=== PATIENT | male | born 1995 | race African-American/Black ===

== ENCOUNTER 2017-01-23 08:45 | Inpatient (IN) | payer SELFPAY ==
[~2017-01-23] VITALS: Ht 162.6 cm; Wt 85.1 kg
[2017-01-23 10:16] LABS: MEAN CORPUSCULAR HEMOGLOBIN 27.8 pg (27.0-33.0); MEAN CORPUSCULAR HGB CONC 32.5 g/dl (32.0-36.5); MEAN CORPUSCULAR VOLUME 85.8 fl (80.0-96.0); RED CELL DISTRIBUTION WIDTH 12.3 % (11.5-14.5); WHITE BLOOD COUNT 6.3 K/mm3 (4.0-10.0)
--- NOTE | 2017-01-23 10:23 | REP ---
CT Head without contrast HISTORY: Altered mental status COMPARISON: None There is no intraparenchymal hemorrhage, acute infarct, mass or midline shift. The ventricular system is normal in appearance. There is no extra cerebral collection. There is no fracture. The visualized sinuses are clear. Minimal soft tissue swelling is present over the left frontal bone. IMPRESSION: There is no intracranial lesion. Signed by Rafa Reilly MD 01/23/2017 10:14 A
[2017-01-23 10:30] LABS: METHADONE URINE NEGATIVE (NEGATIVE)
[2017-01-23 10:39] LABS: ALBUMIN 4.6 GM/DL (3.2-5.2); ALBUMIN/GLOBULIN RATIO 1.21 (1.00-1.93); ALKALINE PHOSPHATASE 67 U/L (45-117); ALT/SGPT 20 U/L (12-78); ANION GAP 10 MEQ/L (8-16); AST/SGOT 12 U/L (15-37); BILIRUBIN,DIRECT 0.1 MG/DL (0.0-0.2); BILIRUBIN,TOTAL 0.6 MG/DL (0.2-1.0); BLOOD UREA NITROGEN 10 MG/DL (7-18); CALCIUM LEVEL 9.1 MG/DL (8.5-10.1); CARBON DIOXIDE LEVEL 27 MEQ/L (21-32); CHLORIDE LEVEL 104 MEQ/L (98-107); CREATININE FOR GFR 1.24 MG/DL (0.70-1.30); GLOMERULAR FILTRATION RATE > 60.0 (>60); GLUCOSE, FASTING 107 MG/DL (70-105); POTASSIUM SERUM 3.6 MEQ/L (3.5-5.1); SODIUM LEVEL 141 MEQ/L (136-145); TOTAL PROTEIN 8.4 GM/DL (6.4-8.2)
[2017-01-23] MEDS ORDERED: IBUPOTC PO (14:01)
[2017-01-23 16:27] VITALS: BP 168/95
[2017-01-23] MEDS ORDERED: MOM 30ML SUSPENSION UDC PO PRN (18:45)
[2017-01-23] MEDS ORDERED: ACETAMINOPHEN TAB 650MG DOSE (2X325MG) PO PRN (18:45)
[2017-01-23] MEDS ORDERED: MAALOX 30 ML SUSP *UDC PO PRN (18:45)
[2017-01-23] MEDS ORDERED: OLANZapine ORAL DISINTEGRATING TAB 5MG PO PRN (18:45)
[2017-01-24] MEDS: traZODone 50 MG TAB PO PRN ×2 (01:53→20:32)
--- NOTE | 2017-01-24 05:38 | MHHPE ---
DATE OF ADMISSION: 01/23/2017 HISTORY OF PRESENT ILLNESS: Please refer to psychiatric history and evaluation for further details on this admission. This examination and history is intended for medical issues, which may need treatment, followup or consultation on this 21-year-old male. ALLERGIES: No known drug allergies. PRIMARY CARE PROVIDER: He does not know. SOCIAL HISTORY: He is single. He states he drinks seven drinks a day, it may be beer, it may be liquor or a combination. He smokes one pack of cigarettes per day. Recreational: He smokes marijuana. PAST MEDICAL HISTORY: Negative. PAST SURGICAL HISTORY: Negative. HOME MEDICATIONS: - ibuprofen 200mg by mouth every 6 hours as needed for pain FAMILY HISTORY: Noncontributory. LABORATORY DATA: CBC is normal. Lytes normal. BUN 10, creatinine 1.24. Urine positive for cannibinoids. Head CT was negative. REVIEW OF SYSTEMS: 10 systems review was done and other than the complaint of a dull headache he had no complaints. PHYSICAL EXAMINATION: VITAL SIGNS: 21-year-old cooperative male in no acute distress. Height 64 inches, weight 85.1 kilograms, Body mass index (BMI) 32.2. Blood pressure 150/90, pulse 75, respirations 16, temperature 98.6. GENERAL: The patient is awake, alert and oriented times three. He will start to converse and then seems to stop talking and stare at you. When you ask him a question he will answer and start talking again but seems very vague. He is oriented to person. HEENT: Pupils equal, round, reactive to light. Extraocular muscles intact. Cornea and sclerae clear. Conjunctiva is normal. No facial asymmetry. Pharynx, tongue and gum is pink and moist. Tongue is midline. NECK: Neck is supple without lymphadenopathy. No thyromegaly. No goiter, no bruit. CHEST: Clear to auscultation without wheeze or retraction. HEART: Heart is regular. ABDOMEN: Benign. Bowel sounds positive. Genitourinary ()/Rectal: Not done. Extremities: Equal strength with full range of motion. No clubbing, cyanosis, or edema. Peripheral pulses are equal and palpable bilaterally. SKIN: Warm and dry. IMPRESSION AND PLAN: 1. Psychiatric plan per psychiatry. 2. No acute medical issues.
[2017-01-24 06:54] VITALS: BP 148/98
[2017-01-24] MEDS ORDERED: LORazepam 2 MG TAB PO PRN (08:15)
[2017-01-24] MEDS: FOLIC ACID 1 MG TAB PO SCH (09:00)
[2017-01-24] MEDS: MULTIVITAMINS/MINERALS THERAP 1 TAB PO SCH (09:00)
[2017-01-24] MEDS: THIAMINE 100 MG TAB PO SCH ×2 (09:00→20:32)
[2017-01-24] MEDS: NICOTINE 21MG/24HR 1 EA TRANSDERMAL TD SCH (09:41)
[2017-01-24 11:48] VITALS: BP 146/86
[2017-01-24 12:08] VITALS: BP 150/94
--- NOTE | 2017-01-24 17:55 | MHHPEPDOC ---
[facility] History & Physical History and Physical DATE OF ADMISSION: Jan 23, 2017 at 14:40 LEGAL STATUS AT ADMISSION: 9.39 CHIEF COMPLAINT: I had an episode. HISTORY OF THE PRESENT ILLNESS: Patient is a 21-year-old male, who, single domicile with father, brother, who is 15 years old, working in [employer] earlier for about 2 weeks. History of ADHD and was taking Adderall XR. History of one inpatient psychiatric admission. In middle school and reported that he was diagnosed with schizoaffective disorder, history of being on Geodon and Zoloft. Past medical history of asthma and head injury was brought in by father because patient was acting bizarre. On evaluation, patient reported that he does not know why he is here. Patient is a poor historian and takes a long time to respond to any of the questions. He reported that he was in the house and he was smelling some gas, so he called his father and he brought him here. Patient also reported that he has been feeling confused recently and this gas incidence was just one of them. He also reported that he has been feeling suspicious and paranoid that people are after him and watching him. He refused to talk about auditory or visual hallucinations or symptoms to be internally preoccupied and responding to internal stimuli that hand gestures and at times murmuring to self. Patient has severe thought blocking in the hallway. He approaches people unexpectedly and after teaching closer to them. He just stares at them. No agitation or aggression reported that patient's vitals have been unstable with increase in heart rate as well as to blood pressure. He reported that he has been drinking alcohol almost every day and last use of alcohol was the day of the admission, he reported that when he stopped drinking alcohol. He has some shakes in his hands, but denies any seizures or any other withdrawal symptoms. He also denies ever using any other drugs including marijuana, cocaine or heroine. Patient was found to be sitting in his room on his bed with no lights on and looking down on the floor. He also reported that he has been feeling depressed and sad recently but was not able to explain what is depression for him and started crying. He noted his head as 'no' When asked about suicidal or homicidal ideations. Denies any nightmares, but reported that he has difficulty sleeping recently also reported that he has difficulty eating because of lower appetite. PAST PSYCHIATRIC HISTORY: 1. Previous hospital admission in middle school, but patient is not sure why he was in the hospital. He was able to identify Geodon and Zoloft as previous medications that he has been on, but reports that he has not been on any medications for a long time. ALLERGIES: Please see below. FAMILY PSYCHIATRIC HISTORY: Patient denies. SOCIAL HISTORY: Patient reported he graduated high school in 2014 and has been working in [employer] for about 2 weeks, but otherwise staying to home and staying to himself SUBSTANCE ABUSE HISTORY: Alcohol use daily. PAST MEDICAL/SURGICAL HISTORY: 1., Asthma and head injury. He reported a head injury happened long time ago and he lost consciousness after that head injury. 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 Psychosis, unspecified, rule out major depression with psychosis, rule out bipolar disorder, current episode depression with psychosis. 2.. Alcohol use disorder. 3.. Rule out psychosis secondary to alcohol use. PROBLEM LIST: 1. Psychosis and depression. 2. alcohol use INITIAL TREATMENT PLAN: 1. Patient was admitted on a 9.39 2. Complete history was obtained. 3. With patients permission, family will be contacted and database will be expanded. 4. Patients medication regimen will be reviewed and changed accordingly. 5. Patient will be provided with protected environment. 6. Patient will be treated with individual, group, and milieu therapies. 7. Patient will receive supportive psych-education. 8. Discharge planning will commence immediately. 9. Outpatient follow-up treatment will be strongly recommended. 10. The initial treatment plan will focus initially on: * Depression. Unable to take care of himself and psychosis * Substance abuse. ESTIMATED LENGTH OF STAY:. 7-10 DAYS. TIME SPENT COUNSELING AND COORDINATING INITIAL CARE: 45 minutes. Medications Scheduled PRN Ibuprofen (Ibuprofen) 200 Mg Tab, 200 MG PO for PAIN, (Reported) Allergies Coded Allergies: No Known Allergies (Unverified , 01/23/17) YOVANY GOLD MD Jan 24, 2017 17:55
[2017-01-24] MEDS ORDERED: OLANZapine 5 MG TAB PO SCH (21:00)
[2017-01-25 06:59] VITALS: BP 134/79
[2017-01-25] MEDS: NICOTINE 21MG/24HR 1 EA TRANSDERMAL TD SCH (09:00)
[2017-01-25] MEDS: FOLIC ACID 1 MG TAB PO SCH (09:00)
[2017-01-25] MEDS: MULTIVITAMINS/MINERALS THERAP 1 TAB PO SCH (09:00)
[2017-01-25] MEDS: THIAMINE 100 MG TAB PO SCH ×2 (09:00→21:00)
[2017-01-25] MEDS: LORazepam 1 MG TAB PO SCH ×2 (09:00→16:00)
--- NOTE | 2017-01-25 17:54 | MHIPNPDOC ---
[facility] Progress Note Progress Note DATE OF SERVICE: 01/25/17 HISTORY: Patient is a 21-year-old male, who, single domicile with father, brother, who is 15 years old, working in [employer] earlier for about 2 weeks. History of ADHD and was taking Adderall XR. History of one inpatient psychiatric admission. In middle school and reported that he was diagnosed with schizoaffective disorder, history of being on Geodon and Zoloft. Past medical history of asthma and head injury was brought in by father because patient was acting bizarre. Pt continue to be internally preoccupied but was able to talk better, reported he moved about a month ago to live with father but after coming here he started drinking alcohol & felt paranoid that people were following him, watching him camera around him & also sending some ideas to his mind. Denies any suicidal or homicidal ideations, intent or plan, reported hearing voices mostly feels like own voice, asking him to leave the unit. Denies using other drugs, reported was on meds uptill middle school but became non compliant. Denies visual hallucinations, sleep is affected. VITAL SIGNS: See below. CURRENT MEDICATIONS: See below. MENTAL STATUS EXAMINATION: 21yo male sitting in the chair, looks appropriate for the stated age, poor hygiene and grooming, decreased psychomotor activities, no abnormal movements, superficially cooperative with fair eye contact, speech is very soft, slow in rate, normal rhythm, amount and monotonous, mood is sad', affect flat to constricted and mood congruent, thought process is having derailment, circumstantial, denies suicidal and homicidal ideations, (?) hallucinations, paranoid delusions elicited, aaox3, fair immediate, short term and halfway memory, poor insight, judgement and impulse control DIAGNOSES: 1. Psychosis, unspecified, rule out major depression with psychosis, rule out bipolar disorder, current episode depression with psychosis. 2.. Alcohol use disorder. 3.. Rule out psychosis secondary to alcohol use. ASSESSMENT:pt remains psychotic & internally preoccupied MANAGEMENT PLAN:Titrate Zyprexa, continue encouragement for better hygiene TIME SPENT: minutes. Vital Signs Vital Signs Date Time Temp Pulse Resp B/P (MAP) Pulse Ox O2 Delivery O2 Flow Rate FiO2 01/25/17 06:59 98.9 70 18 134/79 (97) 01/23/17 15:29 96 Room Air Current Medications Current Medications Acetaminophen (Tylenol Tab) 650 mg Q6HP PRN PO HEADACHE or DISCOMFORT; Start at 18:45; Stop 02/22/17 at 18:44 Al Hydrox/Mg Hydrox/Simethicone (Mylanta) 30 ml Q4HP PRN PO HEARTBURN/ INDIGESTION Last administered on 01/24/17 01:53; Start 01/23/17 at 18:45; Stop 02/22/17 at 18:44 Folic Acid (Folic Acid) 1 mg DAILY PO ; Start 01/24/17 at 09:00; Stop 02/23/17 at 08:59 Home Med (Med Rec Complete!) ASDIRECTED XX ; Start 01/23/17 at 14:15; Stop at 14:15; Status DC Lorazepam (Ativan) 1 mg TID PO ; Start 01/25/17 at 09:00; Stop 02/01/17 at 08:59 Lorazepam (Ativan) 2 mg ASDIRECTED PRN PO SEE PROTOCOL; Start 01/24/17 at 08:15 ; Stop 01/25/17 at 09:46; Status DC Magnesium Hydroxide (Milk Of Magnesia) 30 ml DAILYPRN PRN PO CONSTIPATION; Start 01/23/17 at 18:45; Stop 02/22/17 at 18:44 Multivitamins (Theragram-M) 1 tab DAILY PO ; Start 01/24/17 at 09:00; Stop at 08:59 Nicotine (Nicoderm Cq 21mg) 1 patch DAILY TD Last administered on 01/24/17 09: 41; Start 01/24/17 at 09:00; Stop 02/23/17 at 08:59 Olanzapine (ZyPREXA ZYDIS) 5 mg Q4HP PRN PO AGITATION Last administered on 01/24/17 11:16; Start 01/23/17 at 18:45; Stop 02/22/17 at 18:44 Olanzapine (ZyPREXA) 5 mg QHS PO Last administered on 01/24/17 20:31; Start 01/24/17 at 21:00; Stop 01/25/17 at 11:18; Status DC Olanzapine (ZyPREXA) 10 mg QHS PO ; Start 01/25/17 at 21:00; Stop 02/24/17 at 20: 59 Thiamine HCl (Thiamine HCl) 100 mg BID PO Last administered on 01/24/17 20:32; Start 01/24/17 at 09:00; Stop 01/27/17 at 08:59 Trazodone HCl (Desyrel) 50 mg QHSP PRN PO INSOMNIA Last administered on 20:32; Start 01/23/17 at 18:45; Stop 02/22/17 at 18:44 Allergies Coded Allergies: No Known Allergies (Unverified , 01/23/17) YOVANY GOLD MD Jan 25, 2017 17:54
[2017-01-25 18:00] VITALS: BP 122/70
[2017-01-25] MEDS: OLANZapine 10 MG TAB PO SCH (21:00)
[2017-01-25] MEDS ORDERED: HALOPERIDOL 5 MG TAB PO STA (21:04)
[2017-01-25] MEDS ORDERED: LORazepam 2 MG TAB PO STA (21:04)
[2017-01-25] MEDS ORDERED: diphenhydrAMINE 50 MG CAP PO STA (21:04)
[2017-01-25 21:14] VITALS: BP 178/83
[2017-01-25 21:35] VITALS: BP 148/85
[2017-01-25 22:00] VITALS: BP 123/57
[2017-01-26 06:52] VITALS: BP 127/66
[2017-01-26] MEDS: FOLIC ACID 1 MG TAB PO SCH (09:00)
[2017-01-26] MEDS: THIAMINE 100 MG TAB PO SCH ×2 (09:00→19:33)
[2017-01-26] MEDS: NICOTINE 21MG/24HR 1 EA TRANSDERMAL TD SCH (09:00)
[2017-01-26] MEDS: MULTIVITAMINS/MINERALS THERAP 1 TAB PO SCH (09:00)
[2017-01-26] MEDS: LORazepam 1 MG TAB PO SCH ×3 (09:10→19:33)
[2017-01-26 18:20] VITALS: BP 134/79
[2017-01-26] MEDS: OLANZapine 10 MG TAB PO SCH (19:33)
[2017-01-26] MEDS: traZODone 50 MG TAB PO PRN (19:33)
[2017-01-26 20:27] VITALS: BP 134/79
--- NOTE | 2017-01-26 22:08 | IPN ---
DATE: 01/26/2017 SUBJECTIVE: The patient today was sleeping but he aroused easily. He responded with one word responses and was very guarded. I was able to get him to shake his head when I asked him if he was still hearing voices. Basically he acknowledged that. He also indicated that he had slept well, but that was the extent of the information that I could get from him. MENTAL STATUS EXAMINATION: This patient is alert and oriented times three. Eye contact is fair. Psychomotor activity is decreased. He responds with simple one or two-word answers that do appear to be appropriate. There is no formal thought disorder noted. Mood is fine. Affect is flat. He is having continuous auditory hallucinations. He denies being suicidal or homicidal. Concentration is fair. Insight and judgment poor. DIAGNOSES: 1. Unspecified psychotic disorder. 2. Alcohol use disorder. TREATMENT PLAN: At this point, we will further observe and evaluate this patient for ongoing what appear to be psychotic symptoms, and we will continue to titrate his medications also.
[2017-01-27 06:49] VITALS: BP 133/72
[2017-01-27] MEDS: LORazepam 1 MG TAB PO SCH ×3 (08:43→20:57)
[2017-01-27] MEDS: FOLIC ACID 1 MG TAB PO SCH (08:44)
[2017-01-27] MEDS: MULTIVITAMINS/MINERALS THERAP 1 TAB PO SCH (08:44)
[2017-01-27] MEDS: NICOTINE 21MG/24HR 1 EA TRANSDERMAL TD SCH (08:44)
[2017-01-27 14:42] VITALS: BP 138/79
[2017-01-27 18:17] VITALS: BP 138/79
--- NOTE | 2017-01-27 19:22 | IPN ---
DATE: 01/27/2017 SUBJECTIVE: The patient today states, "I am cured." The patient was actually sleeping. I was able to arouse him easily. However, I was not able to get the patient to respond much to any of my questions, and the only thing he did say was, "I am cured." MENTAL STATUS EXAMINATION: He is alert and oriented to person. Eye contact is poor. Psychomotor activity is decreased. I was not able to further evaluate. He did not verbalize any suicidal or homicidal ideations. I suspect that he is still experiencing auditory hallucinations. Insight and judgment poor. Concentration poor. DIAGNOSES: 1.Unspecified psychotic symptoms. 2. Unspecified depressive disorder. 3. Alcohol use disorder. TREATMENT PLAN: At this point, we will continue to monitor the patient for ongoing psychotic symptoms, and we will continue to titrate his medications as indicated.
[2017-01-27] MEDS: OLANZapine 10 MG TAB PO SCH (20:57)
[2017-01-28 06:51] VITALS: BP 145/77
[2017-01-28 07:50] VITALS: BP 145/77
[2017-01-28] MEDS ORDERED: **PENDING PPD ENTRY XX SCH (09:00)
[2017-01-28] MEDS: **PENDING PPD ENTRY XX SCH (09:00)
[2017-01-28] MEDS: NICOTINE 21MG/24HR 1 EA TRANSDERMAL TD SCH (09:00)
[2017-01-28] MEDS: FOLIC ACID 1 MG TAB PO SCH (09:00)
[2017-01-28] MEDS: MULTIVITAMINS/MINERALS THERAP 1 TAB PO SCH (09:00)
[2017-01-28] MEDS: LORazepam 1 MG TAB PO SCH ×2 (09:12→20:58)
[2017-01-28] MEDS ORDERED: TUBERCULIN PPD 5 UNITS/0.1 ML ID ONE (10:30)
[2017-01-28] MEDS: TUBERCULIN PPD 5 UNITS/0.1 ML ID ONE ×2 (12:09→12:22)
[2017-01-28 18:00] VITALS: BP 113/59
--- NOTE | 2017-01-28 18:01 | MHIPNPDOC ---
[facility] Progress Note Progress Note DATE OF SERVICE: 01/28/17 HISTORY: Patient is a 21-year-old male, who, single domicile with father, brother, who is 15 years old, working in [employer] earlier for about 2 weeks. History of ADHD and was taking Adderall XR. History of multiple inpatient psychiatric admissions since middle school and reported that he was diagnosed with schizoaffective disorder, history of being on Geodon and Zoloft. Past medical history of asthma and head injury was brought in by father because patient was acting bizarre. Pt continue to be internally preoccupied but was able to talk better, reported he moved about a month ago to live with father came from [place], [place] where he was living with another family member but after coming here he started drinking alcohol daily and also used marijuana, which made him feel paranoid that people were following him, watching him camera around him & also sending some ideas to his mind. He reports that he has not been feeling that paranoia consistently, but it comes and goes remains in his room most of the time with limited to no interaction with others and at times he was found to be sitting in the dark, mumbling to himself. Over the weekend. His father was visiting him and after the visiting hours. He tried to leave the unit with him even though he knew that he cannot leave with him. Patient has been refusing some of the medications and treatment and when asked about why he reports that he has been 'cured'. He opened up more today and reported that he has been admitted at least 3-4 times since the middle school in most, and reason for admissions was acting out. He continued to report that he has been feeling confused and thinks that his mind is playing tricks on him. His behavior remains bizarre at times, but his hygiene and grooming are improving. Denies any suicidal or homicidal ideations, intent or plan, reported hearing voices mostly feels like own voice, asking him to leave the unit. He reports that he has tried all the drugs in the past, but recently have been using alcohol and marijuana only. Denies visual hallucinations, sleep is affected. VITAL SIGNS: See below. CURRENT MEDICATIONS: See below. 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 Psychosis, unspecified, rule out major depression with psychosis, rule out bipolar disorder, current episode depression with psychosis. 2.. Alcohol use disorder. 3.. Rule out psychosis secondary to alcohol use. ASSESSMENT:pt remains psychotic & internally preoccupied MANAGEMENT PLAN:Titrate Zyprexa. Continue Encouraged patient to participate in the unit activities TIME SPENT: 15 minutes. Vital Signs Vital Signs Date Time Temp Pulse Resp B/P (MAP) Pulse Ox O2 Delivery O2 Flow Rate FiO2 01/28/17 07:50 82 145/77 01/28/17 06:51 97.4 16 Room Air 01/23/17 15:29 96 Current Medications Current Medications Acetaminophen (Tylenol Tab) 650 mg Q6HP PRN PO HEADACHE or DISCOMFORT; Start at 18:45; Stop 02/22/17 at 18:44 Al Hydrox/Mg Hydrox/Simethicone (Mylanta) 30 ml Q4HP PRN PO HEARTBURN/ INDIGESTION Last administered on 01/24/17 01:53; Start 01/23/17 at 18:45; Stop 02/22/17 at 18:44 Diphenhydramine HCl (Benadryl) 50 mg STAT STAT PO Last administered on 21:14; Start 01/25/17 at 21:04; Stop 01/25/17 at 21:08; Status DC Folic Acid (Folic Acid) 1 mg DAILY PO ; Start 01/24/17 at 09:00; Stop 02/23/17 at 08:59 Haloperidol (Haldol) 5 mg STAT STAT PO Last administered on 01/25/17 21:15; Start 01/25/17 at 21:04; Stop 01/25/17 at 21:08; Status DC Home Med (Med Rec Complete!) ASDIRECTED XX ; Start 01/23/17 at 14:15; Stop at 14:15; Status DC Lorazepam (Ativan) 1 mg BID PO ; Start 01/28/17 at 21:00; Stop 02/01/17 at 08:59 Lorazepam (Ativan) 1 mg TID PO Last administered on 01/28/17 09:12; Start 01/25 at 09:00; Stop 01/28/17 at 15:49; Status DC Lorazepam (Ativan) 2 mg ASDIRECTED PRN PO SEE PROTOCOL; Start 01/24/17 at 08:15 ; Stop 01/25/17 at 09:46; Status DC Lorazepam (Ativan) 2 mg STAT STAT PO Last administered on 01/25/17 21:15; Start 01/25/17 at 21:04; Stop 01/25/17 at 21:08; Status DC Magnesium Hydroxide (Milk Of Magnesia) 30 ml DAILYPRN PRN PO CONSTIPATION; Start 01/23/17 at 18:45; Stop 02/22/17 at 18:44 Multivitamins (Theragram-M) 1 tab DAILY PO ; Start 01/24/17 at 09:00; Stop at 08:59 Nicotine (Nicoderm Cq 21mg) 1 patch DAILY TD Last administered on 01/24/17 09: 41; Start 01/24/17 at 09:00; Stop 02/23/17 at 08:59 Non-Formulary Medication ( See Comment Field Below ) SEE COMMENTS SECTION 1T @10 XX ; Start 01/30/17 at 10:00; Stop 01/30/17 at 10:00; Status DC Non-Formulary Medication ( See Comment Field Below ) SEE LABEL COMMENTS DAILY XX ; Start 01/28/17 at 09:00; Stop 01/28/17 at 10:48; Status DC Non-Formulary Medication ( See Comment Field Below ) SEE LABEL COMMENTS DAILY XX ; Start 01/28/17 at 09:00; Stop 02/27/17 at 08:59 Olanzapine (ZyPREXA ZYDIS) 5 mg Q4HP PRN PO AGITATION Last administered on 01/24/17 11:16; Start 01/23/17 at 18:45; Stop 02/22/17 at 18:44 Olanzapine (ZyPREXA) 5 mg QHS PO Last administered on 01/24/17 20:31; Start 01/24/17 at 21:00; Stop 01/25/17 at 11:18; Status DC Olanzapine (ZyPREXA) 10 mg QHS PO Last administered on 01/27/17 20:57; Start 01/25/17 at 21:00; Stop 01/28/17 at 08:26; Status DC Olanzapine (ZyPREXA) 15 mg QHS PO ; Start 01/28/17 at 21:00; Stop 02/27/17 at 20:59 Thiamine HCl (Thiamine HCl) 100 mg BID PO Last administered on 01/26/17 19:33; Start 01/24/17 at 09:00; Stop 01/27/17 at 08:59; Status DC Trazodone HCl (Desyrel) 50 mg QHSP PRN PO INSOMNIA Last administered on 19:33; Start 01/23/17 at 18:45; Stop 02/22/17 at 18:44 Allergies Coded Allergies: No Known Allergies (Unverified , 01/23/17) YOVAYN GOLD MD Jan 28, 2017 18:01
[2017-01-28] MEDS: traZODone 50 MG TAB PO PRN (20:58)
[2017-01-28] MEDS: OLANZapine 5 MG TAB PO SCH (20:58)
[2017-01-28 20:59] VITALS: BP 145/94
[2017-01-29 06:54] VITALS: BP 147/73
[2017-01-29] MEDS: FOLIC ACID 1 MG TAB PO SCH (09:00)
[2017-01-29] MEDS: LORazepam 1 MG TAB PO SCH ×3 (09:00→21:10)
[2017-01-29] MEDS: MULTIVITAMINS/MINERALS THERAP 1 TAB PO SCH (09:00)
[2017-01-29] MEDS: **PENDING PPD ENTRY XX SCH (09:00)
[2017-01-29] MEDS: NICOTINE 21MG/24HR 1 EA TRANSDERMAL TD SCH (09:00)
[2017-01-29] MEDS ORDERED: TUBERCULIN PPD 5 UNITS/0.1 ML ID ONE (11:00)
--- NOTE | 2017-01-29 16:20 | MHIPNPDOC ---
[facility] Progress Note Progress Note DATE OF SERVICE: 01/29/17 HISTORY: Patient is a 21-year-old male, single domicile with father, brother, who is 15 years old, working in [employer] earlier for about 2 weeks. History of ADHD and was taking Adderall XR. History of multiple inpatient psychiatric admissions since middle school and reported that he was diagnosed with schizoaffective disorder, history of being on Geodon and Zoloft. Past medical history of asthma and head injury was brought in by father because patient was acting bizarre. Patient was seen and evaluated. He has been preoccupied with discharge, but at the same time has difficulty in taking care of himself. Even after repeated encouragement, he is refusing to take medications and also refused to take shower, he remains to himself and reports that he went to 1 group and refused to go to any other activities in the unit. Collateral information from the father can be found in discharge planners note who reportedly thinks that patient is at baseline. Patient continues to deny any suicidal or homicidal ideations, also denies any sleep or appetite problems. No agitation or aggressive episode reported. He denies any auditory or visual hallucinations and also denies paranoid ideations. He continued to report that he has been ' cured'. VITAL SIGNS: See below. CURRENT MEDICATIONS: See below. 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 Psychosis, unspecified, rule out major depression with psychosis, rule out bipolar disorder, current episode depression with psychosis. 2.. Alcohol use disorder. 3.. Rule out psychosis secondary to alcohol use. ASSESSMENT:pt remains psychotic & internally preoccupied MANAGEMENT PLAN:Taper Ativan, Continue Encouraged patient to participate in the unit activities TIME SPENT: 15 minutes. Vital Signs Vital Signs Date Time Temp Pulse Resp B/P (MAP) Pulse Ox O2 Delivery O2 Flow Rate FiO2 01/29/17 06:54 97.5 72 18 147/73 (97) Room Air 01/23/17 15:29 96 Current Medications Current Medications Acetaminophen (Tylenol Tab) 650 mg Q6HP PRN PO HEADACHE or DISCOMFORT; Start at 18:45; Stop 02/22/17 at 18:44 Al Hydrox/Mg Hydrox/Simethicone (Mylanta) 30 ml Q4HP PRN PO HEARTBURN/ INDIGESTION Last administered on 01/24/17 01:53; Start 01/23/17 at 18:45; Stop 02/22/17 at 18:44 Diphenhydramine HCl (Benadryl) 50 mg STAT STAT PO Last administered on 21:14; Start 01/25/17 at 21:04; Stop 01/25/17 at 21:08; Status DC Folic Acid (Folic Acid) 1 mg DAILY PO ; Start 01/24/17 at 09:00; Stop 02/23/17 at 08:59 Haloperidol (Haldol) 5 mg STAT STAT PO Last administered on 01/25/17 21:15; Start 01/25/17 at 21:04; Stop 01/25/17 at 21:08; Status DC Home Med (Med Rec Complete!) ASDIRECTED XX ; Start 01/23/17 at 14:15; Stop at 14:15; Status DC Lorazepam (Ativan) 1 mg BID PO Last administered on 01/29/17 14:29; Start 04/05 at 21:00; Stop 02/01/17 at 08:59 Lorazepam (Ativan) 1 mg TID PO Last administered on 01/28/17 09:12; Start 01/25 at 09:00; Stop 01/28/17 at 15:49; Status DC Lorazepam (Ativan) 2 mg ASDIRECTED PRN PO SEE PROTOCOL; Start 01/24/17 at 08:15 ; Stop 01/25/17 at 09:46; Status DC Lorazepam (Ativan) 2 mg STAT STAT PO Last administered on 01/25/17 21:15; Start 01/25/17 at 21:04; Stop 01/25/17 at 21:08; Status DC Magnesium Hydroxide (Milk Of Magnesia) 30 ml DAILYPRN PRN PO CONSTIPATION; Start 01/23/17 at 18:45; Stop 02/22/17 at 18:44 Multivitamins (Theragram-M) 1 tab DAILY PO ; Start 01/24/17 at 09:00; Stop at 08:59 Nicotine (Nicoderm Cq 21mg) 1 patch DAILY TD Last administered on 01/24/17 09: 41; Start 01/24/17 at 09:00; Stop 02/23/17 at 08:59 Non-Formulary Medication ( See Comment Field Below ) SEE COMMENTS SECTION 1T @10 XX ; Start 01/30/17 at 10:00; Stop 01/30/17 at 10:00; Status DC Non-Formulary Medication ( See Comment Field Below ) SEE LABEL COMMENTS DAILY XX ; Start 01/28/17 at 09:00; Stop 01/28/17 at 10:48; Status DC Non-Formulary Medication ( See Comment Field Below ) SEE LABEL COMMENTS DAILY XX ; Start 01/28/17 at 09:00; Stop 01/29/17 at 10:08; Status DC Olanzapine (ZyPREXA ZYDIS) 5 mg Q4HP PRN PO AGITATION Last administered on 01/24/17 11:16; Start 01/23/17 at 18:45; Stop 02/22/17 at 18:44 Olanzapine (ZyPREXA) 5 mg QHS PO Last administered on 01/24/17 20:31; Start 01/24/17 at 21:00; Stop 01/25/17 at 11:18; Status DC Olanzapine (ZyPREXA) 10 mg QHS PO Last administered on 01/27/17 20:57; Start 01/25/17 at 21:00; Stop 01/28/17 at 08:26; Status DC Olanzapine (ZyPREXA) 15 mg QHS PO Last administered on 01/28/17 20:58; Start 01/28/17 at 21:00; Stop 02/27/17 at 20:59 Thiamine HCl (Thiamine HCl) 100 mg BID PO Last administered on 01/26/17 19:33; Start 01/24/17 at 09:00; Stop 01/27/17 at 08:59; Status DC Trazodone HCl (Desyrel) 50 mg QHSP PRN PO INSOMNIA Last administered on t 20:58; Start 01/23/17 at 18:45; Stop 02/22/17 at 18:44 Allergies Coded Allergies: No Known Allergies (Unverified , 01/23/17) YOVANY GOLD MD Jan 29, 2017 16:20
[2017-01-29 18:00] VITALS: BP 136/72
[2017-01-29] MEDS: traZODone 50 MG TAB PO PRN (21:10)
[2017-01-29] MEDS: OLANZapine 5 MG TAB PO SCH (21:10)
[2017-01-30 06:47] VITALS: BP 134/81
[2017-01-30] MEDS: LORazepam 1 MG TAB PO SCH (09:00)
[2017-01-30] MEDS: FOLIC ACID 1 MG TAB PO SCH (09:00)
[2017-01-30] MEDS: NICOTINE 21MG/24HR 1 EA TRANSDERMAL TD SCH (09:00)
[2017-01-30] MEDS: MULTIVITAMINS/MINERALS THERAP 1 TAB PO SCH (09:00)
[2017-01-30] MEDS ORDERED: PPD DOCUMENTATION ENTRY MISC XX SCH (10:00)
[2017-01-30] MEDS ORDERED: PPD DOCUMENTATION ENTRY MISC XX ONE (12:00)
--- NOTE | 2017-01-30 17:26 | MHIPNPDOC ---
[facility] Progress Note Progress Note DATE OF SERVICE: 01/30/17 HISTORY: Patient is a 21-year-old male, single domicile with father, brother, who is 15 years old, working in [employer] earlier for about 2 weeks. History of ADHD and was taking Adderall XR. History of multiple inpatient psychiatric admissions since middle school and reported that he was diagnosed with schizoaffective disorder, history of being on Geodon and Zoloft. Past medical history of asthma and head injury was brought in by father because patient was acting bizarre. Patient was seen and evaluated. He has been preoccupied with discharge, and reports that he has started going to all the groups which are available and also going in milieu treatment of the unit. Patient continues to deny any suicidal or homicidal ideations, also denies any sleep or appetite problems. No agitation or aggressive episode reported. He denies any auditory or visual hallucinations and also denies paranoid ideations. He also reported that when he came in he was having some paranoid ideations that people are following him and watching him and also putting some new ideas to his mind all of that has gone and does not feel that he is paranoid anymore. He also reported that recently he used marijuana, which he bought from some unknown person and is worried about that could be laced with something that he is not aware of. U tox was positive at the time of admission for cannabinoids. but no other substances which were tested. He continued to report that he has been 'cured'. VITAL SIGNS: See below. CURRENT MEDICATIONS: See below. 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 Psychosis, unspecified, rule out major depression with psychosis, rule out bipolar disorder, current episode depression with psychosis. 2.. Alcohol & marijuana use disorder, 3.. Rule out psychosis secondary to alcohol use. ASSESSMENT: Improving on current treatment MANAGEMENT PLAN: Continue current treatment, Continue Encouraged patient to participate in the unit activities TIME SPENT: 15 minutes. Vital Signs Vital Signs Date Time Temp Pulse Resp B/P (MAP) Pulse Ox O2 Delivery O2 Flow Rate FiO2 01/30/17 06:47 98.2 92 16 134/81 (98) Room Air Current Medications Current Medications Acetaminophen (Tylenol Tab) 650 mg Q6HP PRN PO HEADACHE or DISCOMFORT; Start at 18:45; Stop 02/22/17 at 18:44 Al Hydrox/Mg Hydrox/Simethicone (Mylanta) 30 ml Q4HP PRN PO HEARTBURN/ INDIGESTION Last administered on 01/24/17 01:53; Start 01/23/17 at 18:45; Stop 02/22/17 at 18:44 Diphenhydramine HCl (Benadryl) 50 mg STAT STAT PO Last administered on 21:14; Start 01/25/17 at 21:04; Stop 01/25/17 at 21:08; Status DC Folic Acid (Folic Acid) 1 mg DAILY PO ; Start 01/24/17 at 09:00; Stop 02/23/17 at 08:59 Haloperidol (Haldol) 5 mg STAT STAT PO Last administered on 01/25/17 21:15; Start 01/25/17 at 21:04; Stop 01/25/17 at 21:08; Status DC Home Med (Med Rec Complete!) ASDIRECTED XX ; Start 01/23/17 at 14:15; Stop at 14:15; Status DC Lorazepam (Ativan) 1 mg BID PO Last administered on 01/29/17 21:10; Start 04/05 at 21:00; Stop 01/29/17 at 21:00; Status DC Lorazepam (Ativan) 1 mg DAILY PO ; Start 01/30/17 at 09:00; Stop 02/01/17 at 08: 59 Lorazepam (Ativan) 1 mg TID PO Last administered on 01/28/17 09:12; Start 01/25 at 09:00; Stop 01/28/17 at 15:49; Status DC Lorazepam (Ativan) 2 mg ASDIRECTED PRN PO SEE PROTOCOL; Start 01/24/17 at 08:15 ; Stop 01/25/17 at 09:46; Status DC Lorazepam (Ativan) 2 mg STAT STAT PO Last administered on 01/25/17 21:15; Start 01/25/17 at 21:04; Stop 01/25/17 at 21:08; Status DC Magnesium Hydroxide (Milk Of Magnesia) 30 ml DAILYPRN PRN PO CONSTIPATION; Start 01/23/17 at 18:45; Stop 02/22/17 at 18:44 Multivitamins (Theragram-M) 1 tab DAILY PO ; Start 01/24/17 at 09:00; Stop at 08:59 Nicotine (Nicoderm Cq 21mg) 1 patch DAILY TD Last administered on 01/24/17 09: 41; Start 01/24/17 at 09:00; Stop 02/23/17 at 08:59 Non-Formulary Medication ( See Comment Field Below ) SEE COMMENTS SECTION 1T @10 XX ; Start 01/30/17 at 10:00; Stop 01/30/17 at 10:00; Status DC Non-Formulary Medication ( See Comment Field Below ) SEE LABEL COMMENTS DAILY XX ; Start 01/28/17 at 09:00; Stop 01/28/17 at 10:48; Status DC Non-Formulary Medication ( See Comment Field Below ) SEE LABEL COMMENTS DAILY XX ; Start 01/28/17 at 09:00; Stop 01/29/17 at 10:08; Status DC Olanzapine (ZyPREXA ZYDIS) 5 mg Q4HP PRN PO AGITATION Last administered on 01/24/17 11:16; Start 01/23/17 at 18:45; Stop 02/22/17 at 18:44 Olanzapine (ZyPREXA) 5 mg QHS PO Last administered on 01/24/17 20:31; Start 01/24/17 at 21:00; Stop 01/25/17 at 11:18; Status DC Olanzapine (ZyPREXA) 10 mg QHS PO Last administered on 01/27/17 20:57; Start 01/25/17 at 21:00; Stop 01/28/17 at 08:26; Status DC Olanzapine (ZyPREXA) 15 mg QHS PO Last administered on 01/29/17 21:10; Start 01/28/17 at 21:00; Stop 02/27/17 at 20:59 Thiamine HCl (Thiamine HCl) 100 mg BID PO Last administered on 01/26/17 19:33; Start 01/24/17 at 09:00; Stop 01/27/17 at 08:59; Status DC Trazodone HCl (Desyrel) 50 mg QHSP PRN PO INSOMNIA Last administered on 21:10; Start 01/23/17 at 18:45; Stop 02/22/17 at 18:44 Allergies Coded Allergies: No Known Allergies (Unverified , 01/23/17) YOVANY GOLD MD Jan 30, 2017 17:26
[2017-01-30 18:00] VITALS: BP 138/88
[2017-01-30] MEDS: OLANZapine 5 MG TAB PO SCH (21:01)
[2017-01-31 06:28] VITALS: BP 125/71
[2017-01-31] MEDS: MULTIVITAMINS/MINERALS THERAP 1 TAB PO SCH (09:00)
[2017-01-31] MEDS: NICOTINE 21MG/24HR 1 EA TRANSDERMAL TD SCH (09:00)
[2017-01-31] MEDS: LORazepam 1 MG TAB PO SCH (09:00)
[2017-01-31] MEDS: FOLIC ACID 1 MG TAB PO SCH (09:00)
[2017-01-31] MEDS ORDERED: TRAZO50TA PO (10:31)
[2017-01-31] MEDS ORDERED: OLAN15TA PO (10:31)
[2017-01-31] MEDS ORDERED: PPD DOCUMENTATION ENTRY MISC XX ONE (11:00)
--- NOTE | 2017-01-31 15:44 | MHDSPDOC ---
[facility] Discharge Summary Discharge Summary DATE OF ADMISSION: Jan 23, 2017 at 14:40 DATE OF DISCHARGE: Jan 31, 2017 at 12:00 DISCHARGE DIAGNOSES: 1. Psychosis, unspecified, rule out major depression with psychosis. 2.. Alcohol and marijuana use disorder. REASON FOR ADMISSION:, Bizarre behavior and psychosis From H&P: CHIEF COMPLAINT: I had an episode. HISTORY OF THE PRESENT ILLNESS: Patient is a 21-year-old male, who, single domicile with father, brother, who is 15 years old, working in [employer] earlier for about 2 weeks. History of ADHD and was taking Adderall XR. History of one inpatient psychiatric admission. In middle school and reported that he was diagnosed with schizoaffective disorder, history of being on Geodon and Zoloft. Past medical history of asthma and head injury was brought in by father because patient was acting bizarre. On evaluation, patient reported that he does not know why he is here. Patient is a poor historian and takes a long time to respond to any of the questions. He reported that he was in the house and he was smelling some gas, so he called his father and he brought him here. Patient also reported that he has been feeling confused recently and this gas incidence was just one of them. He also reported that he has been feeling suspicious and paranoid that people are after him and watching him. He refused to talk about auditory or visual hallucinations or symptoms to be internally preoccupied and responding to internal stimuli that hand gestures and at times murmuring to self. Patient has severe thought blocking in the hallway. He approaches people unexpectedly and after teaching closer to them. He just stares at them. No agitation or aggression reported that patient's vitals have been unstable with increase in heart rate as well as to blood pressure. He reported that he has been drinking alcohol almost every day and last use of alcohol was the day of the admission, he reported that when he stopped drinking alcohol. He has some shakes in his hands, but denies any seizures or any other withdrawal symptoms. He also denies ever using any other drugs including marijuana, cocaine or heroine. Patient was found to be sitting in his room on his bed with no lights on and looking down on the floor. He also reported that he has been feeling depressed and sad recently but was not able to explain what is depression for him and started crying. He noted his head as 'no' When asked about suicidal or homicidal ideations. Denies any nightmares, but reported that he has difficulty sleeping recently also reported that he has difficulty eating because of lower appetite. PAST PSYCHIATRIC HISTORY: 1. Previous hospital admission in middle school, but patient is not sure why he was in the hospital. He was able to identify Geodon and Zoloft as previous medications that he has been on, but reports that he has not been on any medications for a long time. ALLERGIES: Please see below. FAMILY PSYCHIATRIC HISTORY: Patient denies. SOCIAL HISTORY: Patient reported he graduated high school in 2014 and has been working in [employer] for about 2 weeks, but otherwise staying to home and staying to himself SUBSTANCE ABUSE HISTORY: Alcohol use daily. PAST MEDICAL/SURGICAL HISTORY: 1., Asthma and head injury. He reported a head injury happened long time ago and he lost consciousness after that head injury." CONSULTANTS INVOLVED: Medical evaluation and treatment TREATMENT AND PROGRESS ON THE UNIT : The patient was admitted on and was started on Zyprexa initially patient was somewhat catatonic and was not able to take care of self, having pararnoid delusions and needed multiple verbal redirection to control his behavior. He was also started on when necessary medications of Zydis and hydroxyzine for anxiety and agitation and trazodone for his sleep problems. Zyprexa was titrated up to 15 mg at nighttime and Patient responded well to the treatment and his mood was stabilized. Patient was initially started on CIWA protocol, along with as needed Ativan, but he was not compliant and responded better when it was a scheduled medication, but his vital signs were stable and did not need to continue it. HOSPITAL COURSE: Initially after the admission, patient was catatonic, internally preoccupied, paranoid delusions, was irritable and getting angry easily. He also tried to elope from the unit. He remained to himself with limited interaction with others in the unit. He responded well to the treatment and his mood stabilized more. Denied any suicidal or homicidal ideations and also denied any craving for drugs and refused to go for outpatient treatment for substance use , even after explaining the need for it multiple times. Patient did not need any restraints. Constant observations or IM medications while being in the hospital DISCHARGE ASSESSMENT:. Patient reported that his mood has been more stable and denied any suicidal or homicidal ideations, intentions or plans. He denied any psychotic symptoms including paranoid ideations or hallucinations. 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 Trazodone 50 mg daily at bedtime when necessary for sleep problems PLAN/FOLLOWUP ARRANGEMENTS: As arranged and noted by discharge plan. The amount of time spent in the coordination of care for this patient was approximately 30 minutes. Vital Signs/I&Os Vital Signs Date Time Temp Pulse Resp B/P (MAP) Pulse Ox O2 Delivery O2 Flow Rate FiO2 01/31/17 06:28 97.6 103 18 125/71 (89) 01/30/17 06:47 Room Air Medications Scheduled Olanzapine (Olanzapine) 15 Mg Tab, 15 MG PO QHS for MOOD for 7 Days, #7 Scheduled PRN Ibuprofen (Ibuprofen) 200 Mg Tab, 200 MG PO for PAIN, (Reported) Trazodone HCl (Trazodone HCl) 50 Mg Tab, 50 MG PO QHSP PRN for INSOMNIA for 7 Days, #7 Allergies Coded Allergies: No Known Allergies (Unverified , 01/23/17) YOVANY GOLD MD Jan 31, 2017 15:44
== END 2017-01-31 12:00 | disposition home or self-care (01) | DRG 751 ==
LOC: M ED 08:45 → M ED INP 14:40 → M PSY 16:24
PROVIDERS: ADMIT Psychiatry & Neurology Psychiatry; ATTEND Psychiatry & Neurology Psychiatry
DX: F32.3 Major depressive disorder, single episode, severe with psychotic features (principal); F10.10 Alcohol abuse, uncomplicated; F17.210 Nicotine dependence, cigarettes, uncomplicated; F12.10 Cannabis abuse, uncomplicated